=== PATIENT | female | born 1945 | race Caucasian/White ===

== ENCOUNTER 2020-12-04 10:33 | Outpatient (CLI) | payer OTHER | END 2020-12-04 10:34 | disposition home or self-care (01) | LOC: BICMAMMO 10:33 | PROVIDERS: ATTEND Internal Medicine | DX: Z13.820 Encounter for screening for osteoporosis (principal); M85.852 Other specified disorders of bone density and structure, left thigh; M85.851 Other specified disorders of bone density and structure, right thigh | CPT/HCPCS: 77080 ==